=== PATIENT | male | born 1985 | race Caucasian/White ===

== ENCOUNTER 2018-02-23 20:57 | Emergency (ER) | payer SELFPAY ==
[2018-02-23] MEDS: ACETAMINOPHEN 325 MG TAB PO (22:29)
[2018-02-23] MEDS: LORAZEPAM 0.5 MG TAB PO (23:33)
== END 2018-02-24 01:26 | disposition home or self-care (01) ==
LOC: FTE 02-24 01:26
DX: R51 Headache (principal)
CPT/HCPCS: 70450; 99284-25